=== PATIENT | female | born 1960 | race Caucasian/White ===

== ENCOUNTER 2020-01-21 02:09 | Emergency (ER) | payer BC ==
[~2020-01-21] VITALS: Ht 160 cm; Wt 81.7 kg
[2020-01-21] MEDS ORDERED: CONEST.625 PO (02:24)
[2020-01-21] MEDS ORDERED: PRED20 PO (03:13)
== END 2020-01-21 04:36 | disposition home or self-care (01) ==
LOC: ER 02:09
DX: R22.1 Localized swelling, mass and lump, neck (principal); Z91.012 Allergy to eggs; Z91.018 Allergy to other foods; Z79.890 Hormone replacement therapy
CPT/HCPCS: 96361; 96374; 96375; 99283-25; J1100; J1200; J7030